=== PATIENT | female | born 1980 | race Caucasian/White ===

== ENCOUNTER 2018-01-10 23:54 | Emergency (ER) | payer SELFPAY ==
[~2018-01-10] VITALS: Ht 152.4 cm; Wt 76.4 kg
[2018-01-10 23:57] VITALS: BP 113/68
[2018-01-11] MEDS ORDERED: KETOROLAC TROMETHAMINE 30 MG/ML VIAL IM ONE (01:30)
== END 2018-01-11 01:27 | disposition home or self-care (01) ==
LOC: EMS 23:55
DX: S63.610A Unspecified sprain of right index finger, initial encounter (principal); Z90.49 Acquired absence of other specified parts of digestive tract; Z98.84 Bariatric surgery status; W23.0XXA Caught, crushed, jammed, or pinched between moving objects, initial encounter; Y93.89 Activity, other specified; Y92.810 Car as the place of occurrence of the external cause; Y99.8 Other external cause status
CPT/HCPCS: 29130; 73130; 96372; 99284; J1885